=== PATIENT | female | born 1985 | race Caucasian/White ===

== ENCOUNTER 2016-09-07 17:15 | Emergency (ER) | payer MEDICAID | END 2016-09-07 22:17 | disposition home or self-care (01) | LOC: D.ER 17:15 | DX: S93.602A Unspecified sprain of left foot, initial encounter (principal); V09.9XXA Pedestrian injured in unspecified transport accident, initial encounter; Y93.89 Activity, other specified; Y92.019 Unspecified place in single-family (private) house as the place of occurrence of the external cause; F17.200 Nicotine dependence, unspecified, uncomplicated ==